=== PATIENT | male | born 1950 | race Caucasian/White ===

== ENCOUNTER 2022-09-19 10:26 | Observation (INO) | payer MEDICARE, SELFPAY ==
[2022-09-19] VITALS (61 sets, daily range): BP systolic 125–170; BP diastolic 57–79; PULSE 73–92; RESP 7–24; TEMP 36.8–36.9; O2SAT 88–98; BMI 29.4; BMI 28.3
--- NOTE | 2022-09-19 10:34 | DI.RAD.S_ITS ---
PROCEDURE: XR CHEST 1V INDICATIONS: chest pain TECHNIQUE: One view of the chest was acquired. COMPARISON: None. FINDINGS: Surgical changes and devices: None. Lungs and pleura: Lungs are clear. No pleural effusions or pneumothorax. Mediastinum: Mediastinal contours demonstrate tortuous course of the thoracic aorta. Heart size is normal. Bones and chest wall: No suspicious bony lesions. Overlying soft tissues appear unremarkable. IMPRESSION: Chest without acute cardiopulmonary abnormalities or focal airspace disease. Dictated by: Deyvi Cortez M.D. on 09/19/2022 at 11:12 Approved by: Deyvi Cortez M.D. on 09/19/2022 at 11:15
[2022-09-19] MEDS: NITROGLYCERIN 0.4 MG SL TAB SL (10:53)
[2022-09-19 11:00] LABS: Add Manual Diff / Slide Review NO; Basophils Absolute Auto 0 /uL (0-100); Basophils Percent Auto 0.4 % (0-2); Eosinophils Absolute Auto 100 /uL (0-450); Eosinophils Percent Auto 0.9 % (2-4); Hematocrit 42.7 % (41-53); Hemoglobin 14.3 g/dL (13.5-17.5); Lymphocytes Absolute Auto 1500 /uL (1100-4500); Lymphocytes Percent Auto 22.6 % (25-40); Mean Corpuscular HGB Conc 33.4 % (30-36); Mean Corpuscular Hemoglobin 29.6 PG (26-34); Mean Corpuscular Volume 88.5 fL (80-100); Monocytes Absolute Auto 300 /uL (0-900); Monocytes Percent Auto 4.4 % (3-14); Neutrophils Absolute Auto 4600 /uL (1500-7000); Neutrophils Percent Auto 71.7 % (50-75); Platelet Count 263 X10^3/uL (150-400); Red Blood Cell Count 4.82 X10^6/uL (4.5-5.9); Red Cell Distribution Width 13.3 % (11.6-14.8); White Blood Cell Count 6.5 X10^3/uL (4.5-11.0)
[2022-09-19 11:04] LABS: Alanine Aminotransferase 24 IU/L (<50); Albumin 4.2 g/dL (3.5-5.0); Albumin Globulin Ratio 1.4 (1.0-2.8); Alkaline Phosphatase 94 U/L (38-126); Aspartate Aminotransferase 23 IU/L (17-59); Bilirubin Total 0.3 mg/dL (0.2-1.3); Blood Urea Nitrogen 14 mg/dL (9-20); Calcium 8.8 mg/dL (8.4-10.2); Carbon Dioxide 25 mmol/L (22-32); Chloride 106 mmol/L (98-107); Creatine Kinase 70 U/L (55-170); Estimated Glomerular Filt Rate > 60 mL/min (>60); Globulin 3.1 g/dL (1.7-4.1); Glucose 95 mg/dL (80-110); HEMOLYSIS < 15 (0-50); Lipase 87 U/L (23-300); Potassium 3.8 mmol/L (3.4-5.1); Sodium 140 mmol/L (137-145); Total Protein 7.3 g/dL (6.3-8.2)
[2022-09-19 11:12] LABS: PTT Partial Thromboplastin Tim 34 SECONDS (26-36)
[2022-09-19 11:15] LABS: Troponin I < 0.012 ng/mL (0.01-0.034)
--- NOTE | 2022-09-19 11:41 | ED_ITS ---
HPI - Chest Pain General Chief Complaint: Chest Pain Stated Complaint: Sent by /RAMIREZ/Chest back pain Time Seen by Provider: 09/19/22 11:38 Source: patient and family Mode of arrival: Wheelchair Limitations: no limitations History of Present Illness HPI narrative: This is a 72-year-old male with complaint of left back that has been going on for several months that worsened this morning after he got up and then is radiating to his left arm and chest. Patient states he feels a little bit short of breath. He states he presently has both the left side did arm, chest and back pain he had nitro sublingual which was not helpful. States no syncopal episodes he is had some dizziness intermittently. He denies any nausea or vomiting. He is occasionally gotten sweaty or diaphoretic but not today. He states he would note that he would get short of breath with exertion and walking up stairs but never had chest or back discomfort. He denies any swelling of extremities. Patient is had some mild constipation. He states nothing seems to exacerbate or worsen his symptoms of the chest pressure discomfort. Nothing seems to make it better. He states he takes an aspirin as needed but not every day, he is on vitamin-C and vitamin-D supplements but no other prescription medications. He is had a large sliver surgically removed from his finger and has had to distal fingers amputated remotely. He does note he had rheumatic fever as a child. He states he is had prior EKGs but never had stress testing. Patient's primary care was not nurse practitioner he is set up to be reestablished with Dr. Pawel arreguin at [facility] but has not seen them yet. Patient lives in the [facility] and is visiting. Related Data Home Medications Medication Instructions Recorded Confirmed No Known Home Medications 09/19/22 09/19/22 Allergies Allergy/AdvReac Type Severity Reaction Status Date / Time No Known Drug Allergies Allergy Verified 09/19/22 10:52 Review of Systems Review of Systems ROS Unobtainable: All systems reviewed & are unremarkable except as noted in HPI and below Patient History Medical History (Updated 09/19/22 @ 15:46 by Pao Mcclelland MD) Fracture of left wrist Injury of finger of right hand Social History household members: spouse Smoking Status: Former smoker alcohol intake: current Smoking Status: Former smoker alcohol intake frequency: 0-2 drinks per day Substance Use Type: does not use Exam Narrative Exam Narrative: GENERAL: Alert and oriented x three, male in mild distress HEENT: Head normocephalic, atraumatic, EOMI, pupils reactive, face symmetric, mo ist mucous membranes NECK: Supple, full range of motion CARDIOVASCULAR: Regular rate and rhythm without murmurs, rubs or gallops. No reproducible chest pain or pressure. No swelling bilateral lower extremities. 2+ pulses upper and lower extremities. RESPIRATORY: Breath sounds equal bilaterally, no wheezes, rales or rhonchi. ABDOMEN: Soft, nontender. Normoactive bowel sounds all 4 quadrants. No guarding or rebound, rigidity, no mass, no pulsatile mass. : No CVA tenderness EXTREMITIES: Normal range of motion, no clubbing or edema. Neurovascularly intact. NEUROLOGICAL: Cranial nerves II through XII grossly intact. Moving all extremities SKIN: Warm, dry, no petechiae, no rashes or lesions. Initial Vital Signs Initial Vital Signs: Vital Signs Pulse Rate 88 09/19/22 10:30 Respiratory Rate 24 09/19/22 10:30 Blood Pressure 170/78 H 09/19/22 10:30 Pulse Oximetry 98 09/19/22 10:30 Oxygen Delivery Method Room Air 09/19/22 10:30 Course Orders Ordered: ED Orders 09/19/22 10:34 XR chest 1V Stat EKG-12 Lead Stat 09/19/22 10:40 Complete Blood Count AUTO DIFF Stat Comprehensive Metabolic Panel Stat Lipase Stat Magnesium Stat PTT Partial Thromboplastin Jacob Stat Prothrombin Time INR Stat Troponin & CK Cardiac Panel Stat 09/19/22 12:16 CT angio chest PE protocol Stat 09/19/22 12:45 Trop I [Troponin I] Stat 09/19/22 13:13 EKG-12 Lead Routine 09/19/22 14:40 COVID19 -Nasal RAPID Stat Acetaminophen (Acetaminophen 325 Mg Tablet) 650 mg PO Q4H PRN PRN Reason: Fever/Mild Pain (1-3) Aspirin (Aspirin Ec 81 Mg Tablet) 81 mg PO DAILY NANCY Atorvastatin Calcium (Atorvastatin 20 Mg Tablet) 40 mg PO BEDTIME [facility] Diclofenac Sodium (Diclofenac 1% Gel 100 Gm) 1 applic TOP QID [facility] Melatonin (Melatonin 3 Mg Tablet) 6 mg PO BEDTIME NANCY Morphine Sulfate (Morphine 2 Mg/Ml Inj) 2 mg IV Q2HR PRN PRN Reason: Pain, Moderate (4-6) Nitroglycerin (Nitroglycerin 0.4 Mg Sl Tab) 0.4 mg SL [id number] PRN PRN Reason: Chest Pain Last Admin: 09/19/22 10:53 Dose: 0.4 mg Documented By: RB Nitroglycerin (Nitroglycerin 0.4 Mg Sl Tab) 0.4 mg SL [id number] PRN PRN Reason: Chest Pain Oxycodone HCl (Oxycodone Ir 5 Mg Tablet) 5 mg PO Q4HR PRN PRN Reason: Pain, Moderate (4-6) Pantoprazole Sodium (Pantoprazole Dr 40 Mg Tablet) 40 mg PO 0700 NANCY Polyethylene Glycol (Polyethylene Glycol 3350 17 Gm Powd.Pack) 17 gm PO DAILY NANCY Sennosides (Sennosides 8.6 Mg Tablet) 17.2 mg PO BEDTIME NANCY Discontinued Medications Prothrombin Complex Concent ( Human) 2,500 unit/Miscellaneous 100 mls @ 728.287 mls/hr IV NOW ; Protocol Stop: 09/19/22 12:07 Last Admin: 09/19/22 12:20 Dose: Not Given Documented By: RB Morphine Sulfate (Morphine 2 Mg/Ml Inj) 2 mg IV NOW Stop: 09/19/22 12:17 Last Admin: 09/19/22 12:27 Dose: Not Given Documented By: RB Vital Signs Vital signs: Vital Signs - 8 hr 09/19/22 10:35 09/19/22 10:35 09/19/22 10:40 Pulse Rate 85 85 Respiratory Rate 17 11 L Blood Pressure 170/78 H Pulse Oximetry 98 98 09/19/22 10:45 09/19/22 10:53 09/19/22 10:49 Pulse Rate 84 83 83 Respiratory Rate 11 L 10 L Blood Pressure 157/71 H Pulse Oximetry 98 97 09/19/22 10:49 09/19/22 10:50 09/19/22 10:50 Pulse Rate 84 Respiratory Rate 9 L Blood Pressure 170/72 H 157/71 H Pulse Oximetry 97 09/19/22 10:55 09/19/22 10:55 09/19/22 11:00 Pulse Rate 84 Respiratory Rate 11 L Blood Pressure 152/70 H 162/72 H Pulse Oximetry 97 09/19/22 11:00 09/19/22 11:05 09/19/22 11:05 Pulse Rate 90 89 Respiratory Rate 11 L 10 L Blood Pressure 147/65 H Pulse Oximetry 96 97 09/19/22 11:10 09/19/22 11:10 09/19/22 11:15 Pulse Rate 90 Respiratory Rate 10 L Blood Pressure 154/67 H 150/68 H Pulse Oximetry 98 09/19/22 11:15 09/19/22 11:20 09/19/22 11:20 Pulse Rate 86 87 Respiratory Rate 9 L 9 L Blood Pressure 146/64 H Pulse Oximetry 98 98 09/19/22 11:25 09/19/22 11:25 09/19/22 11:30 Pulse Rate 84 Respiratory Rate 9 L Blood Pressure 148/65 H 135/61 Pulse Oximetry 97 09/19/22 11:30 09/19/22 11:35 09/19/22 11:35 Pulse Rate 83 81 Respiratory Rate Blood Pressure 138/60 Pulse Oximetry 97 97 09/19/22 11:40 09/19/22 11:40 09/19/22 11:45 Pulse Rate 81 Respiratory Rate Blood Pressure 145/63 H 135/64 Pulse Oximetry 97 09/19/22 11:45 09/19/22 11:50 09/19/22 11:50 Pulse Rate 79 79 Respiratory Rate Blood Pressure 132/57 L Pulse Oximetry 97 97 09/19/22 11:55 09/19/22 11:55 09/19/22 12:00 Pulse Rate 80 Respiratory Rate Blood Pressure 129/59 L 128/60 Pulse Oximetry 97 09/19/22 12:00 09/19/22 12:05 09/19/22 12:05 Pulse Rate 79 81 Respiratory Rate 11 L Blood Pressure 127/61 Pulse Oximetry 96 97 09/19/22 12:10 09/19/22 12:10 09/19/22 12:15 Pulse Rate 80 Respiratory Rate 9 L Blood Pressure 135/65 127/62 Pulse Oximetry 96 09/19/22 12:15 09/19/22 12:20 09/19/22 12:20 Pulse Rate 81 79 Respiratory Rate 13 9 L Blood Pressure 138/63 Pulse Oximetry 97 97 09/19/22 12:25 09/19/22 12:25 09/19/22 12:30 Pulse Rate 82 Respiratory Rate 11 L Blood Pressure 128/61 126/63 Pulse Oximetry 97 09/19/22 12:30 09/19/22 12:35 09/19/22 12:35 Pulse Rate 78 75 Respiratory Rate 11 L 10 L Blood Pressure 125/62 Pulse Oximetry 96 96 09/19/22 12:40 09/19/22 12:40 09/19/22 12:45 Pulse Rate 74 Respiratory Rate 8 L Blood Pressure 135/63 131/61 Pulse Oximetry 97 09/19/22 12:45 09/19/22 12:50 09/19/22 12:50 Pulse Rate 73 75 Respiratory Rate 9 L 10 L Blood Pressure 137/63 Pulse Oximetry 96 96 09/19/22 13:05 09/19/22 13:10 09/19/22 13:15 Pulse Rate 83 79 80 Respiratory Rate 15 7 L Blood Pressure Pulse Oximetry 88 L 98 97 09/19/22 13:20 09/19/22 13:24 09/19/22 13:24 Pulse Rate 81 81 Respiratory Rate 16 12 Blood Pressure 165/72 H Pulse Oximetry 97 97 09/19/22 13:25 09/19/22 13:25 09/19/22 13:30 Pulse Rate 79 Respiratory Rate 7 L Blood Pressure 155/70 H 146/72 H Pulse Oximetry 97 09/19/22 13:30 09/19/22 13:35 09/19/22 13:35 Pulse Rate 79 78 Respiratory Rate 13 8 L Blood Pressure 150/73 H Pulse Oximetry 96 96 09/19/22 13:40 09/19/22 13:40 09/19/22 13:45 Pulse Rate 78 Respiratory Rate 9 L Blood Pressure 139/67 134/66 Pulse Oximetry 96 09/19/22 13:45 09/19/22 13:50 09/19/22 13:50 Pulse Rate 80 83 Respiratory Rate 8 L 8 L Blood Pressure 160/74 H Pulse Oximetry 97 97 MDM - Chest Pain Lab Data 09/19/22 10:40 09/19/22 10:40 Labs: Lab Results 09/19/22 09/19/22 09/19/22 Range/Units 10:40 10:40 10:40 WBC 6.5 (4.5-11.0) X10^3/uL RBC 4.82 (4.5-5.9) X10^6/uL Hgb 14.3 (13.5-17.5) g/dL Hct 42.7 (41-53) % MCV 88.5 (80-100) fL MCH 29.6 (26-34) PG MCHC 33.4 (30-36) % RDW 13.3 (11.6-14.8) % Plt Count 263 (150-400) X10^3/uL Neut % (Auto) 71.7 (50-75) % Lymph % (Auto) 22.6 L (25-40) % [place] % (Auto) 4.4 (3-14) % Eos % (Auto) 0.9 L (2-4) % Baso % (Auto) 0.4 (0-2) % Neut # (Auto) 4600 (3237-7601) /uL Lymph # (Auto) 1500 (3199-1348) /uL [place] # (Auto) 300 (0-900) /uL Eos # (Auto) 100 (0-450) /uL Baso # (Auto) 0 (0-100) /uL PT 12.0 (10.1-12.7) SECONDS INR 1.0 (0.9-1.3) APTT 34 (26-36) SECONDS Sodium 140 (137-145) mmol/L Potassium 3.8 (3.4-5.1) mmol/L Chloride 106 (98-107) mmol/L Carbon Dioxide 25 (22-32) mmol/L BUN 14 (9-20) mg/dL Creatinine 0.70 (0.66-1.25) mg/dL Estimated GFR > 60 (>60) mL/min BUN/Creatinine Ratio 20.0 (6-22) Glucose 95 (80-110) mg/dL Calcium 8.8 (8.4-10.2) mg/dL Magnesium 2.0 (1.6-2.3) mg/dL Total Bilirubin 0.3 (0.2-1.3) mg/dL AST 23 (17-59) IU/L ALT 24 (<50) IU/L Alkaline Phosphatase 94 (38-126) U/L Total Creatine Kinase 70 (55-170) U/L CK-MB (CK-2) TNP CK-MB (CK-2) Rel Index TNP Troponin I < 0.012 (0.01-0.034) ng/mL Total Protein 7.3 (6.3-8.2) g/dL Albumin 4.2 (3.5-5.0) g/dL Globulin 3.1 (1.7-4.1) g/dL Albumin/Globulin Ratio 1.4 (1.0-2.8) Lipase 87 (23-300) U/L 09/19/22 Range/Units 12:45 WBC (4.5-11.0) X10^3/uL RBC (4.5-5.9) X10^6/uL Hgb (13.5-17.5) g/dL Hct (41-53) % MCV (80-100) fL MCH (26-34) PG MCHC (30-36) % RDW (11.6-14.8) % Plt Count (150-400) X10^3/uL Neut % (Auto) (50-75) % Lymph % (Auto) (25-40) % [place] % (Auto) (3-14) % Eos % (Auto) (2-4) % Baso % (Auto) (0-2) % Neut # (Auto) (3855-2899) /uL Lymph # (Auto) (6790-2662) /uL [place] # (Auto) (0-900) /uL Eos # (Auto) (0-450) /uL Baso # (Auto) (0-100) /uL PT (10.1-12.7) SECONDS INR (0.9-1.3) APTT (26-36) SECONDS Sodium (137-145) mmol/L Potassium (3.4-5.1) mmol/L Chloride (98-107) mmol/L Carbon Dioxide (22-32) mmol/L BUN (9-20) mg/dL Creatinine (0.66-1.25) mg/dL Estimated GFR (>60) mL/min BUN/Creatinine Ratio (6-22) Glucose (80-110) mg/dL Calcium (8.4-10.2) mg/dL Magnesium (1.6-2.3) mg/dL Total Bilirubin (0.2-1.3) mg/dL AST (17-59) IU/L ALT (<50) IU/L Alkaline Phosphatase (38-126) U/L Total Creatine Kinase (55-170) U/L CK-MB (CK-2) CK-MB (CK-2) Rel Index Troponin I < 0.012 (0.01-0.034) ng/mL Total Protein (6.3-8.2) g/dL Albumin (3.5-5.0) g/dL Globulin (1.7-4.1) g/dL Albumin/Globulin Ratio (1.0-2.8) Lipase (23-300) U/L Imaging Data Chest x-ray: Radiologist's Impression: Iggy Redman??72??M??1950 ? Allergy/Adv: No Known Drug Allergies (More??) Close Chest X-Ray (Signed) Deyvi Cortez - 09/19/22 Launch?Image [address] [address] XRay Report Signed Patient: Iggy Redman MR#: [id number] : 1950 Acct:[id number] Age/Sex: 72 / M Date of Service: 09/19/22 Loc: ED Accession Number: [id number] ?? Procedure: XR chest 1V Ordering Provider: Nevaeh Gaitan D.O. PROCEDURE:? XR CHEST 1V ? INDICATIONS:? chest pain ? TECHNIQUE:? One view of the chest was acquired.? ? COMPARISON:? None. ? FINDINGS:? ? Surgical changes and devices:? None.? ? Lungs and pleura:? Lungs are clear.? No pleural effusions or pneumothorax.? ? Mediastinum:? Mediastinal contours demonstrate tortuous course of the thoracic aorta.? Heart size is normal.? ? Bones and chest wall:? No suspicious bony lesions.? Overlying soft tissues appear unremarkable.? ? IMPRESSION:? Chest without acute cardiopulmonary abnormalities or focal airspace disease. ? ? Dictated by: Deyvi Cortez M.D. on 09/19/2022 at 11:12 ? ? Approved by: eDyvi Cortez M.D. on 09/19/2022 at 11:15?? CT scan - chest: Radiologist's Impression: [address] [address] [address] Scan Report Signed Patient: Iggy Redman MR#: [id number] : 1950 Acct:[id number] Age/Sex: 72 / M Date of Service: 09/19/22 Loc: ED Accession Number: [id number] ?? Procedure: CT angio chest PE protocol Ordering Provider: Nevaeh Gaitan D.O. PROCEDURE:? CT ANGIO CHEST PE PROTOCOL ? INDICATIONS:? left back/chest pain ? TECHNIQUE:? After the administration of intravenous contrast, 2 mm thick sections acquired from the pulmonary apices to the posterior costophrenic angles.? 3-dimensional maximum intensity projection (MIP) coronal and sagittal reformats were then acquired through the thorax.? For radiation dose reduction, the following was used:? automated exposure control, adjustment of mA and/or kV according to patient size.? ? COMPARISON:? None. ? FINDINGS:? Image quality:? Excellent.? ? Pulmonary arteries:? Pulmonary arteries are normal in size, and demonstrate no intraluminal filling defects to suggest central pulmonary embolism.? ? Lungs and pleura:? Lungs are clear.? No pleural effusions or pneumothorax.? Central and peripheral airways are patent.? ? Mediastinum:? Mild cardiomegaly with enlargement of the left ventricle and left atrium.? No pericardial effusion.? Mild to moderate coronary artery calcifications.? No mediastinal or hilar adenopathy.? Thoracic aorta is normal in caliber and enhancement.? Esophagus is normal in caliber, without hiatal hernia.? ? Bones and chest wall:? No suspicious bony lesions.? Ribs and thoracic spine appear intact throughout.? Thyroid gland contains a 4.9 cm maximum diameter right lower pole nodule No axillary or supraclavicular adenopathy.? ? Abdomen:? Visualized upper abdominal solid organs appear normal in the early arterial phase of enhancement.? ? IMPRESSION:? ? 1. No evidence acute pulmonary emboli. ? 2. No evidence acute pulmonary process. ? 3. Mild cardiomegaly with left ventricular and left atrial enlargement.? Mild to moderate coronary artery calcifications. ? 4.? 4.9 cm right thyroid nodule. ? Comment:? Recommend nonemergent thyroid ultrasound for further evaluation. ? ? Dictated by: Prasad Arshad M.D. on 09/19/2022 at 13:23 ? ? Approved by: Prasad Arshad M.D. on 09/19/2022 at 13:28?? ECG Data Attestation: I personally reviewed and interpreted this ECG as follows: Prior ECG tracings: not available for review Interpretation: Sinus rhythm rate 84 MN 186 QRS 88 QTC of 446. No acute ST elevation patient has some nonspecific change. No priors for comparison. Sinus rhythm rate 80 MN 190 QRS [address] No acute [address] elevation depression appreciated on EKG no dynamic changes from first to second. MDM Narrative Medical decision making narrative: This is a 72-year-old male who presents with complaint of left back and chest discomfort that has been somewhat longstanding but worsened today he is also having shortness of breath with his symptoms some radiation down his arm. He took 324 mg aspirin x2 at home today, he would nitro sublingual with no real change he states his maximum was 5/6 he is at a 3 currently. Patient states no syncopal episodes. He does note that he was having some shortness of breath with exertion but was not having chest pain or pressure in the several months before. CBC, CMP, INR, troponin were all negative. Chest x-ray shows some mediastinal tortuous aorta but no other acute changes. Patient was hypertensive on arrival that has improved after the nitro. Plan for CT angio as he is having back pain that now radiates to his chest with some mediastinal change, repeat troponin and EKG at the 2 hour window. These show no acute change troponin EKG. CT angio shows no evidence of pulmonary emboli, no acute pulmonary process, right thyroid nodule, vasculature otherwise appears patient has mild cardiomegaly with left ventricular and left atrial enlargement and [id number] coronary artery calcifications and a 4.9 cm right thyroid nodule. Discussed with patient I was going to keep him for chest pain observation, serial troponins and stress testing. Patient had already had aspirin 324 mg today, patient received nitro with minimal change, morphine sulfate patient declined. Discussed with patient I would like to keep him for chest pain observation and stress testing. Patient is agreeable, spoke with Dr. Hidalgo the hospitalist who accepts. Discharge Plan Departure Patient Disposition: Admitted as Observation Clinical Impression: Thyroid nodule, Chest pain Admit Date/Time: 09/19/22 13:51 Admit Provider: Pao Mcclelland
--- NOTE | 2022-09-19 12:16 | DI.CT.S_ITS ---
PROCEDURE: CT ANGIO CHEST PE PROTOCOL INDICATIONS: left back/chest pain TECHNIQUE: After the administration of intravenous contrast, 2 mm thick sections acquired from the pulmonary apices to the posterior costophrenic angles. 3-dimensional maximum intensity projection (MIP) coronal and sagittal reformats were then acquired through the thorax. For radiation dose reduction, the following was used: automated exposure control, adjustment of mA and/or kV according to patient size. COMPARISON: None. FINDINGS: Image quality: Excellent. Pulmonary arteries: Pulmonary arteries are normal in size, and demonstrate no intraluminal filling defects to suggest central pulmonary embolism. Lungs and pleura: Lungs are clear. No pleural effusions or pneumothorax. Central and peripheral airways are patent. Mediastinum: Mild cardiomegaly with enlargement of the left ventricle and left atrium. No pericardial effusion. Mild to moderate coronary artery calcifications. No mediastinal or hilar adenopathy. Thoracic aorta is normal in caliber and enhancement. Esophagus is normal in caliber, without hiatal hernia. Bones and chest wall: No suspicious bony lesions. Ribs and thoracic spine appear intact throughout. Thyroid gland contains a 4.9 cm maximum diameter right lower pole nodule No axillary or supraclavicular adenopathy. Abdomen: Visualized upper abdominal solid organs appear normal in the early arterial phase of enhancement. IMPRESSION: 1. No evidence acute pulmonary emboli. 2. No evidence acute pulmonary process. 3. Mild cardiomegaly with left ventricular and left atrial enlargement. Mild to moderate coronary artery calcifications. 4. 4.9 cm right thyroid nodule. Comment: Recommend nonemergent thyroid ultrasound for further evaluation. Dictated by: Prasad Arshad M.D. on 09/19/2022 at 13:23 Approved by: Prasad Arshad M.D. on 09/19/2022 at 13:28
[2022-09-19 13:33] LABS: Troponin I < 0.012 ng/mL (0.01-0.034)
--- NOTE | 2022-09-19 13:59 | PM.HP.1 ---
History of Present Illness History of Present Illness Date Patient Seen: 09/19/22 Chief complaint: Sent by /RAMIREZ/Chest back pain Narrative: This is a 72-year-old male with complaint of left back that has been going on for several months that worsened this morning after he got up and then radiated to his left arm and chest.? Patient stated he feels a little bit short of breath.? He stated on presentation, had both the left side did arm, chest and back pain and he had nitro sublingual which was not help.? Stated no syncopal episodes but he did have some dizziness intermittently.? He denied any nausea or vomiting.? He has occasionally gotten sweaty or diaphoretic but not on day of presentation.? He stated he would note that he would get short of breath with exertion and walking up stairs but never had chest or back discomfort.? He denied any swelling of extremities.? Patient is had some mild constipation.? He states nothing seems to exacerbate or worsen his symptoms of the chest pressure discomfort.? Nothing seems to make it better.? He stated he takes an aspirin as needed but not every day, he is on vitamin-C and vitamin-D supplements but no other prescription medications. He has been saline recently in the last few days and very strong winds and thought perhaps that most of his pains were related to muscles. [facility] Medical History (Updated 09/19/22 @ 15:46 by Pao Mcclelland MD) Fracture of left wrist Injury of finger of right hand Social History Smoking Status: Former smoker Meds Home Medications and Allergies Allergies Allergy/AdvReac Type Severity Reaction Status Date / Time No Known Drug Allergies Allergy Verified 09/19/22 10:52 Review of Systems Review of Systems Narrative: Fourteen system review completed and pertinent findings in the history of chief complaint. Exam Vital Signs (past 8 hours): - 09/19/22 10:30 09/19/22 10:34 09/19/22 10:35 Pulse Rate 88 85 Respiratory Rate 24 Blood Pressure 170/78 H 170/78 H Pulse Oximetry 98 97 Oxygen Delivery Method Room Air 09/19/22 10:35 09/19/22 10:40 09/19/22 10:45 Pulse Rate 85 85 84 Respiratory Rate 17 11 L 11 L Blood Pressure Pulse Oximetry 98 98 98 Oxygen Delivery Method 09/19/22 10:53 09/19/22 10:49 09/19/22 10:49 Pulse Rate 83 83 Respiratory Rate 10 L Blood Pressure 157/71 H 170/72 H Pulse Oximetry 97 Oxygen Delivery Method 09/19/22 10:50 09/19/22 10:50 09/19/22 10:55 Pulse Rate 84 Respiratory Rate 9 L Blood Pressure 157/71 H 152/70 H Pulse Oximetry 97 Oxygen Delivery Method 09/19/22 10:55 09/19/22 11:00 09/19/22 11:00 Pulse Rate 84 90 Respiratory Rate 11 L 11 L Blood Pressure 162/72 H Pulse Oximetry 97 96 Oxygen Delivery Method 09/19/22 11:05 09/19/22 11:05 09/19/22 11:10 Pulse Rate 89 Respiratory Rate 10 L Blood Pressure 147/65 H 154/67 H Pulse Oximetry 97 Oxygen Delivery Method 09/19/22 11:10 09/19/22 11:15 09/19/22 11:15 Pulse Rate 90 86 Respiratory Rate 10 L 9 L Blood Pressure 150/68 H Pulse Oximetry 98 98 Oxygen Delivery Method 09/19/22 11:20 09/19/22 11:20 09/19/22 11:25 Pulse Rate 87 Respiratory Rate 9 L Blood Pressure 146/64 H 148/65 H Pulse Oximetry 98 Oxygen Delivery Method 09/19/22 11:25 09/19/22 11:30 09/19/22 11:30 Pulse Rate 84 83 Respiratory Rate 9 L Blood Pressure 135/61 Pulse Oximetry 97 97 Oxygen Delivery Method 09/19/22 11:35 09/19/22 11:35 09/19/22 11:40 Pulse Rate 81 Respiratory Rate Blood Pressure 138/60 145/63 H Pulse Oximetry 97 Oxygen Delivery Method 09/19/22 11:40 09/19/22 11:45 09/19/22 11:45 Pulse Rate 81 79 Respiratory Rate Blood Pressure 135/64 Pulse Oximetry 97 97 Oxygen Delivery Method 09/19/22 11:50 09/19/22 11:50 09/19/22 11:55 Pulse Rate 79 Respiratory Rate Blood Pressure 132/57 L 129/59 L Pulse Oximetry 97 Oxygen Delivery Method 09/19/22 11:55 09/19/22 12:00 09/19/22 12:00 Pulse Rate 80 79 Respiratory Rate Blood Pressure 128/60 Pulse Oximetry 97 96 Oxygen Delivery Method Oxygen Delivery Method Room Air Narrative Exam Narrative: GENERAL: Alert and oriented x three, male in mild distress HEENT: Head normocephalic, atraumatic, EOMI, pupils reactive, face symmetric, moist mucous membranes NECK: Supple, full range of motion CARDIOVASCULAR: Regular rate and rhythm without murmurs, rubs or gallops.? No reproducible chest pain or pressure.? No swelling bilateral lower extremities.? 2+ pulses upper and lower extremities. RESPIRATORY: Breath sounds equal bilaterally, no wheezes, rales or rhonchi. ABDOMEN: Soft, nontender.? Normoactive bowel sounds all 4 quadrants.? No guarding or rebound, rigidity, no mass, no pulsatile mass. : No CVA tenderness EXTREMITIES: Normal range of motion, no clubbing or edema.? Neurovascularly intact.? NEUROLOGICAL: Cranial nerves II through XII grossly intact.? Moving all extremities SKIN: Warm, dry, no petechiae, no rashes or lesions. Objective Labs 09/19/22 10:40 09/19/22 10:40 Labs: Laboratory Results - last 24 hr 09/19/22 09/19/22 09/19/22 10:40 10:40 10:40 WBC 6.5 RBC 4.82 Hgb 14.3 Hct 42.7 MCV 88.5 MCH 29.6 MCHC 33.4 RDW 13.3 Plt Count 263 Neut % (Auto) 71.7 Lymph % (Auto) 22.6 L Norman % (Auto) 4.4 Eos % (Auto) 0.9 L Baso % (Auto) 0.4 Neut # (Auto) 4600 Lymph # (Auto) 1500 Norman # (Auto) 300 Eos # (Auto) 100 Baso # (Auto) 0 PT 12.0 INR 1.0 APTT 34 Sodium 140 Potassium 3.8 Chloride 106 Carbon Dioxide 25 BUN 14 Creatinine 0.70 Estimated GFR > 60 BUN/Creatinine Ratio 20.0 Glucose 95 Calcium 8.8 Magnesium 2.0 Total Bilirubin 0.3 AST 23 ALT 24 Alkaline Phosphatase 94 Total Creatine Kinase 70 CK-MB (CK-2) TNP CK-MB (CK-2) Rel Index TNP Troponin I < 0.012 Total Protein 7.3 Albumin 4.2 Globulin 3.1 Albumin/Globulin Ratio 1.4 Lipase 87 09/19/22 12:45 WBC RBC Hgb Hct MCV MCH MCHC RDW Plt Count Neut % (Auto) Lymph % (Auto) Norman % (Auto) Eos % (Auto) Baso % (Auto) Neut # (Auto) Lymph # (Auto) Norman # (Auto) Eos # (Auto) Baso # (Auto) PT INR APTT Sodium Potassium Chloride Carbon Dioxide BUN Creatinine Estimated GFR BUN/Creatinine Ratio Glucose Calcium Magnesium Total Bilirubin AST ALT Alkaline Phosphatase Total Creatine Kinase CK-MB (CK-2) CK-MB (CK-2) Rel Index Troponin I < 0.012 Total Protein Albumin Globulin Albumin/Globulin Ratio Lipase Assessment & Plan Assessment & Plan narrative: 1. Left chest and arm pain. Provide pain medicine with intravenous morphine 2 mg IV every 2 hour as needed. Concern for cardiac pain. Do workup with echocardiogram and nuclear stress test. As well measure fasting lipid panels and initiate the patient on atorvastatin 40 mg daily, aspirin 81 mg daily. Troponins have been negative times 2. 2. Left back pain. Provide oxycodone 5 mg q.4h as needed and Voltaren gel t.i.d. 3. Shortness of breath. O2 supplementation as needed. 4. Constipation. Sennosides 17.2 mg p.o. q.h.s. and MiraLax 17 g p.o. daily a.m. 5. History of smoking. Continue to support encouraging the patient to continue cessation. 6. Cardiomegaly and cardiac artery calcification noted on CTA. Follow-up with an echocardiogram and nuclear stress test. Ensure patient is on statin and aspirin. 7. Noted right thyroid nodule. Needs workup in the community once discharged. 8. Uncontrolled hypertension. May be due to stress. Continue to monitor. DVT prophylaxis: Enoxaparin 40 mg subQ daily Gastric prophylaxis: Ppi daily Code: Full Surrogate decision maker: Rosie Redman COVID-19 COVID-19 status: Negative Quality VTE Deep Vein Thrombosis/Pulmonary Embolism Present on Admission: No MIPS - Admit I confirm the patient?s Advance Care Plan is present, Code status is documented, Surrogate decision maker is in patient?s record [If Yes, STOP here]: Yes MIPS - Meds 'Current medications' to include all prescriptions, [id number] products, herbals, cannabis/cannabidiol products, and vitamin/mineral/dietary (nutritional) supplements. I have utilized all available resources to obtain, update, or review the patient?s current medications. [If Yes, STOP here]: Yes
[2022-09-19 15:18] LABS: COVID19 -Nasal RAPID Negative (Negative)
--- NOTE | 2022-09-19 15:50 | DI.NM.S_ITS ---
PROCEDURE: NM MILAGROS PERF SPECT REST & STR Rest and exercise myocardial perfusion SPECT with gated imaging and ejection fraction RADIOPHARMACEUTICAL: 11.0 mCi Tc-99m sestamibi IV at rest and 26.9 mCi Tc-99m sestamibi IV at peak exercise. A one day-protocol was performed. INDICATIONS: Chest pain TECHNIQUE: Radiopharmaceutical was injected at peak stress test, and also at rest. SPECT images were obtained. SPECT myocardial perfusion images were displayed in short axis, horizontal long axis, and vertical long axis views. Gated images were reviewed using Celsense software. COMPARISON: None. CARDIAC STRESS: A standard David treadmill exercise tolerance test was performed by the patient under the supervision of an attending staff. The patient exercised for 3 minutes and 31 seconds; functional aerobic impairment (ILDA) is +36%. Hemodynamic data: There is normal blood pressure and heart rate response to exercise stress. Patient achieved 96% of maximum predicted heart rate at peak exercise. Symptoms: Patient denied chest pain during exercise. EKG: Mild horizontal ST depressions in the anterolateral leads and mild to moderate horizontal ST depressions in the inferior leads during recovery; no ectopy. FINDINGS: Raw data: There is good myocardial labeling by radiotracer. No significant motion artifacts. Tlgu-zt-[id number] ratio is 0.22 (normal is less than 0.38 for sestamibi tracer, and less than 0.50 for thallium tracer). Left ventricle function: Gated images demonstrate normal left ventricle wall thickening. No segmental wall motion abnormality. No transient ischemic dilation; TID is 0.76 (normal less than 1.3). The left ventricle resting end-diastolic volume is 123 mL. Left ventricle stress ejection fraction is 77%; normal values are above 45%. Myocardial perfusion: There is a moderately intense fixed inferior wall defect that resolves with prone imaging, suggesting diaphragmatic attenuation artifact. No definite prior infarction. No ischemia. IMPRESSION: Low risk, probably normal treadmill nuclear stress test 1) There is a moderately intense fixed inferior wall defect that resolves with prone imaging, suggesting diaphragmatic attenuation artifact. No definite prior infarction. No ischemia. 2) Normal left ventricular size, wall motion, and systolic function (EF post stress 77%). 3) Mild horizontal ST depressions in the anterolateral leads and mild to moderate horizontal ST depressions in the inferior leads during recovery. These changes are non-diagnostic in the setting of reassuring perfusion images. 4) No angina during the study. 5) Reduced exercise tolerance (4.6METs, ILDA +36%). Target heart rate achieved. Appropriate BP response to exercise. 6) No prior nuclear stress test available for comparison. Dictated by: Alana Delgado MD on 09/20/2022 at 15:42 Approved by: Alana Delgado MD on 09/20/2022 at 15:46
[2022-09-19] MEDS: ATORVASTATIN 20 MG TABLET 40 MG PO (20:33)
[2022-09-19] MEDS: MELATONIN 3 MG TABLET 6 MG PO (20:33)
[2022-09-19] MEDS: SENNOSIDES 8.6 MG TABLET 17.2 MG PO (20:33)
[2022-09-20 00:43] VITALS: BP 120/73; PULSE 71; RESP 18; TEMP 36.7; O2SAT 97
[2022-09-20 04:55] VITALS: BP 134/74; PULSE 66; RESP 18; TEMP 36.7; O2SAT 95
--- NOTE | 2022-09-20 07:00 | DI.ECHO.S_ITS ---
Echocardiogram Report + + :Name: SUHA BAUTISTA Study Date: 09/20/2022 Height: 73 in : :[facility] ReadingLocation: Weight: 223 lb: : Gender: Male BSA: 2.3 m2 : :: 1950 Age: 72 yrs : :Reason For Study: CHEST PAIN : :Ordering Physician: JEREMIE, : :PADMINI CAMPA Performed By: Rocio Marmolejo : :Referring: PADMINI CHAO MD : + + Interpretation Summary 1) Normal left ventricular thickness, size, wall motion, and systolic function (EF 60-65%). 2) Normal right ventricular size and function. 3) There is mild aortic regurgitation. 4) No prior Echo available for comparison. Procedure: A two-dimensional transthoracic echocardiogram with color flow and Doppler was performed. The study quality was technically adequate. There is no prior echocardiogram noted for this patient. The patient was in sinus rhythm with heart rates between 75-81 bpm during the exam. Left Ventricle: The left ventricle is normal in size and wall thickness. The ejection fraction is estimated to be 60-65%. Left ventricular systolic function appears normal without focal wall motion abnormalities. Diastolic parameters suggest a relaxation abnormality of the left ventricle, consistent with probable normal filling pressures. Right Ventricle: The right ventricle is normal in size and function. Atria: The left atrial size is normal. Right atrial size is normal. There is no Doppler evidence for an interatrial shunt. Mitral Valve: The mitral valve leaflets are slightly calcified. There is mild mitral annular calcification. There is trace mitral regurgitation. Aortic Valve: The aortic valve is trileaflet. The aortic valve is slightly calcified. There is mild aortic valve sclerosis. There is no aortic valve stenosis. There is mild aortic regurgitation. Tricuspid Valve: The tricuspid valve is normal in structure and function. There is trace tricuspid regurgitation. Pulmonic Valve: The pulmonic valve is not well visualized. There is a trace or physiologic amount of pulmonic regurgitation. Great Vessels: The aortic root is normal size. The dimensions of the ascending aorta are normal. The IVC is of normal diameter and collapses greater than 50% with a sniff. This suggests a low right atrial pressure of 3 mm Hg. Pericardium/ Pleura There is no pericardial effusion. There is no pleural effusion. MMode/2D Measurements & Calculations LVIDd: 5.6 cm LVOT diam: 2.2 cm LVIDs: 3.9 cm Ao root diam: 3.9 cm FS: 31.3 % asc Aorta Diam: 3.7 cm IVSd: 0.78 cm Ao Arch Diam (Prox Trans): 3.2 cm LVPWd: 0.84 cm LV kenny. diameter/BSA (cm/m^2): 2.5 LV sys. diameter/BSA (cm/m^2): 1.7 LA A2 area: 20.4 cm2 RA long axis: 4.9 cm LA A4 area: 19.7 cm2 RA area: 15.4 cm2 LA length (vol): 5.4 cm RA vol: 40.9 ml LA vol: 63.6 ml RA : 18.1 ml/m2 LA vol index: 28.2 ml/m2 IVC diam: 1.2 cm RVD1 (basal): 3.2 cm RVD2 (mid): 2.1 cm TAPSE: 2.5 cm Doppler Measurements & Calculations Ao V2 max: 173.3 cm/sec LVOT Max Jarrod: 103.5 cm/sec Ao V2 mean: 133.0 cm/sec LV V1 max P.3 mmHg Ao max P.0 mmHg LV V1 VTI: 20.4 cm Ao mean P.5 mmHg JANETTE(I,D): 2.1 cm2 Ao V2 VTI: 36.4 cm JANETTE(V,D): 2.3 cm2 sev ratio: 0.56 JANETTE indexed to BSA (cm^2/m^2): 0.94 AI P1/2t: 477.3 msec AI dec slope: 256.7 cm/sec2 MV E max jarrod: 79.0 cm/sec PA V2 max: 91.4 cm/sec MV A max jarrod: 93.1 cm/sec PA V2 mean: 59.8 cm/sec MV E/A: 0.85 PA mean P.7 mmHg Med Peak E' Jarrod: 7.4 cm/sec PA pr(Accel): 31.0 mmHg E/E' med: 10.7 Lat Peak E' Jarrod: 10.5 cm/sec E/E' lat: 7.6 E/e' average: 9.1 MV dec time: 0.24 sec MVA(VTI): 3.2 cm2 MV V2 mean: 58.0 cm/sec SV(LVOT): 77.3 ml MV mean P.5 mmHg MV V2 VTI: 24.0 cm Reading Physician:10:31 AM
[2022-09-20 09:00] VITALS: BP 139/83; PULSE 80; RESP 18; TEMP 36.6; O2SAT 95
[2022-09-20 13:00] VITALS: BP 140/75; PULSE 85; RESP 20; TEMP 36.7; O2SAT 93
[2022-09-20] MEDS: ASPIRIN EC 81 MG TABLET PO (14:18)
--- NOTE | 2022-09-20 14:20 | CM.DANOTE ---
DCP/continued: Reviewed chart. Patient is a 72yr old male admitted under OBS status with chest pain. Primary payor is 1)[employer]. Met with patient this AM explained CM/SW role. Patient reports that he resides in [place] with his spouse/Rosie. Patient here visiting family on [facility]. Patient began to have chest pain and decided to come into the hospital. Stress test and ECHO going to be done. If both negative patient will discharge from [facility]. Patient reports that he is completely I with all ADL's. Patient has provider appointment in [place] on so he is hopeful he will leave today. Provider aware. Patient also requesting his records. credit charge authorizer/Clarise notified and will take care of prior to patient's discharge. P: Discharged today if cardiac w/u negative. KJS Discharge Planning/Care Management CM Discharge Assessment Start: 09/20/22 14:15 Freq: Status: Active Protocol: Document 09/20/22 14:15 KJS (Rec: 09/20/22 14:20 KJS [id number]) Discharge Planning Assessment Assigned Transport Manager RENEE Oliveira Contact Information Rosie Cowanlmer ph# Advance Directives? No History Provided By Patient Prior Living Arrangements House Household Members spouse Type of transporation used prior to Drives own vehicle admit Independent with ADL's Yes Is patient alert and oriented? Yes Caregiver for Another No Comment Patient denies using any DME. Barriers to Discharge No Comment Awaiting stress test Transportation Arrangement Family to provide transport Referrals Initiated None needed Whiteboard Updated in Patient Room with Yes name and ext. # of Transport Manager Review Status In Process Next Review Type Continued Stay Review
--- NOTE | 2022-09-20 15:51 | PM.DS.1 ---
History of Present Illness History of Present Illness Date Patient Seen: 09/20/22 Time Patient Seen: 15:51 Chief complaint: Sent by /RAMIREZ/Chest back pain Narrative: Per admitting provider, This is a 72-year-old male with complaint of left back that has been going on for several months that worsened this morning after he got up and then radiated to his left arm and chest.? Patient stated he feels a little bit short of breath.? He stated on presentation, had both the left side did arm, chest and back pain and he had nitro sublingual which was not help.? Stated no syncopal episodes but he did have some dizziness intermittently.? He denied any nausea or vomiting.? He has occasionally gotten sweaty or diaphoretic but not on day of presentation.? He stated he would note that he would get short of breath with exertion and walking up stairs but never had chest or back discomfort.? He denied any swelling of extremities.? Patient is had some mild constipation.? He states nothing seems to exacerbate or worsen his symptoms of the chest pressure discomfort.? Nothing seems to make it better.? He stated he takes an aspirin as needed but not every day, he is on vitamin-C and vitamin-D supplements but no other prescription medications. He has been saline recently in the last few days and very strong winds and thought perhaps that most of his pains were related to muscles. Discharge Providers Provider Date of admission: 09/19/22 13:51 Discharge Date: 09/20/22 Discharge provider: Ranjan Holland DO Summary Hospital Course Discharge Diagnosis: 1. Left chest and arm pain 2. Constipation. 3. History of smoking. 4. Noted right thyroid nodule. 5. hypertension.? Hospital Course: This is a 72 year old male admitted with chest pain. CTA negative for PE but did show coronary artery calcifications and possible cardiomegaly. Nuclear stress testing the following day was deemed low risk, and echocardiogram showed normal size, wall motion, and normal EF. His blood pressures were initially elevated but did improve without medications. Further follow up with primary care provider is recommended for continued monitoring of patient's blood pressure and further evaluation if symptoms continue. He was noted to have a large thyroid nodule, which patient reports is followed as an outpatient by an photographic process worker at home in [facility]. Time Spent with Patient Time spent: Greater than 30 minutes Exam Vital Signs (past 8 hours): - 09/20/22 09:00 09/20/22 13:00 Temperature 97.8 F 98.0 F Pulse Rate 80 85 Respiratory Rate 18 20 Blood Pressure 139/83 140/75 Pulse Oximetry 95 93 Oxygen Flow Rate 0 0 Oxygen Delivery Method Room Air Oxygen Flow Rate 0 Narrative Exam Narrative: GENERAL: Alert and oriented x three, male in mild distress HEENT: Head normocephalic, atraumatic, EOMI, pupils reactive, face symmetric, moist mucous membranes NECK: Supple, full range of motion CARDIOVASCULAR: Regular rate and rhythm without murmurs, rubs or gallops.? No reproducible chest pain or pressure.? No swelling bilateral lower extremities.? 2+ pulses upper and lower extremities. RESPIRATORY: Breath sounds equal bilaterally, no wheezes, rales or rhonchi. ABDOMEN: Soft, nontender.? Normoactive bowel sounds all 4 quadrants.? No guarding or rebound, rigidity, no mass, no pulsatile mass. : No CVA tenderness EXTREMITIES: Normal range of motion, no clubbing or edema.? Neurovascularly intact.? NEUROLOGICAL: Cranial nerves II through XII grossly intact.? Moving all extremities SKIN: Warm, dry, no petechiae, no rashes or lesions. Objective Labs 09/19/22 10:40 09/19/22 10:40 [facility] Medical History (Updated 09/19/22 @ 15:46 by Pao Mcclelland MD) Fracture of left wrist Injury of finger of right hand Social History household members: spouse Smoking Status: Former smoker alcohol intake: current Discharge Plan Discharge Plan Patient Disposition: Home Provider Discharge Comment: You were admitted to the hospital with chest pain. Stress testing was normal and no medication changes are recommended. Discharge orders & Medications Prescriptions: No Action No Known Home Medications Follow up/Referrals: Miscellaneous,DoctorMD [Non-Staff] - Diet/Activity/Treatments Diet: Diet as Tolerated Activity: As tolerated Visit Report/Discharge Packet Instructions: DI for Cardiac Stress Test, DI for Chest Pain Stand Alone Forms: Patient Portal/API, Stroke Signs & Symptoms Discharge Data Attending Provider: Pao Mcclelland Admit Date/Time: 09/19/22 13:51 Discharges patient from system. Discharge Date/Time: 09/20/22 17:00 Quality VTE Deep Vein Thrombosis/Pulmonary Embolism Present on Admission: No
--- NOTE | 2022-09-20 17:06 | PC.NURSE ---
Discharge: Pt feels ready to d/c to home. Spoke with Dr. Holland for a long time and gave D\C instructions. Reviewed discharge packet with pt and his . No new rx. Questions answered. Pt d/c to home via auto w/spouse.
== END 2022-09-20 17:00 | disposition home or self-care (01) ==
LOC: ED 13:50 → AC 13:52
PROVIDERS: Admitting Provider Neuromusculoskeletal Medicine, Sports Medicine; Emergency Provider Emergency Medicine; Referring Provider Emergency Medicine; Visit Provider Neuromusculoskeletal Medicine, Sports Medicine
DX: R07.9 Chest pain, unspecified (principal); M54.9 Dorsalgia, unspecified; M79.602 Pain in left arm; R06.02 Shortness of breath; K59.00 Constipation, unspecified; E04.1 Nontoxic single thyroid nodule; I51.7 Cardiomegaly; R03.0 Elevated blood-pressure reading, without diagnosis of hypertension; Z20.822 Contact with and (suspected) exposure to COVID-19
CPT/HCPCS: 36415; 71045; 71275; 78452; 80053; 82550; 83690; 83735; 84484; 85025; 85610; 85730; 87635; 93005; 93017; 93306; 99284; C9803; G0378; A9502; J2270; Q9967